=== PATIENT | female | born 1955 | race Caucasian/White ===

== ENCOUNTER → 2017-10-16 | Outpatient (CLI) | payer OTHER ==
[~2017-10-16] MED LIST: ATROVENT H200 INHALA IH; COMBIVENT RESPIM4 GM IH; FLOVENT 22120 INHALA IH; LISINOPRIL10 MG PO; LISINOPRIL5 MG PO; PROAIR HFA8.5 GM IH; PROAIR RESPICL90 MCG IH; SINGULAIR10 MG PO; THEO-24 100 MG100 MG PO; THEO-24400 MG PO; THEOPHYLLINE A200 M1 PO; VENTOLIN HFA18 GM IH; XANAX0.25 MG PO; ZESTRIL5 MG PO; ZOLOFT25 MG PO; ZOLOFT50 MG PO; inhaler
[2017-10-16 09:05] LABS: HEMATOCRIT 42.8 % (36.0-46.0); MCH 30.4 PG (29.0-34.0); MCHC 32.9 G/DL (30.0-36.0); MCV 92.2 FL (83-99); MEAN PLAT.VOLUME 9.4 uM^3 (9.5-12.4); PLATELET COUNT 263 K/uL (156-360); RBC DIS.WIDTH-CV 13.5 % (11.8-14.6); RBC DIS.WIDTH-SD 45.8 % (39-53); RED BLOOD COUNT 4.64 M/uL (3.80-5.20); WHITE BLOOD COUNT 8.1 K/uL (4.1-10.2)
[2017-10-16 09:12] LABS: INTER. NORMALIZED RATIO 0.9; PROTHROMBIN TIME 10.1 SEC (10.2-12.9)
[2017-10-16 09:14] LABS: PTT 31.2 SEC (25-37)
== END | disposition home or self-care (01) ==
LOC: OPR 08:39 → EDSTATUS 09:00
PROVIDERS: Internal Medicine Pulmonary Disease
PROC: 0BJKXZZ Inspection of Right Lung, External Approach (ICD-10-PCS; principal; 2017-10-16)
DX: R91.1 Solitary pulmonary nodule (principal); Z53.09 Procedure and treatment not carried out because of other contraindication
CPT/HCPCS: 77012; 85027; 85610; 85730; J3010